=== PATIENT | male | born 1975 | race Two or more races ===

== ENCOUNTER 2017-09-29 17:32 | Emergency (ER) | payer MEDICAID ==
[~2017-09-29] VITALS: Ht 177.8 cm; Wt 79.4 kg
[2017-09-29 17:38] VITALS: BP 128/79
[2017-09-29] MEDS ORDERED: cefTRIAXone SOD 1,000 MG VL IM ONE (19:30)
[2017-09-29] MEDS ORDERED: BACITRACIN TOP OINT 1 UD PKG TOP ONE (19:45)
== END 2017-09-29 20:30 | disposition home or self-care (01) ==
LOC: ER 17:36
DX: T81.4XXA Infection following a procedure, initial encounter (principal); L02.414 Cutaneous abscess of left upper limb; F17.210 Nicotine dependence, cigarettes, uncomplicated
CPT/HCPCS: 96372; 99283; J0696

== ENCOUNTER 2019-04-02 17:53 | Emergency (ER) | payer MEDICAID ==
[~2019-04-02] VITALS: Ht 177.8 cm; Wt 70.3 kg
[2019-04-02 18:11] VITALS: BP 131/83
[2019-04-02 18:57] LABS: Urine Bacteria NONE SEEN /hpf (None Seen); Urine Blood Negative /uL (Negative); Urine Specific Gravity 1.004 (1.001-1.035); Urine WBC <1 /hpf (0 - 3)
[2019-04-02] MEDS ORDERED: LACTULOSE 20Gm/30ML SOLN PO ONE (19:15)
== END 2019-04-02 19:30 | disposition home or self-care (01) ==
LOC: ER 17:53
DX: M54.16 Radiculopathy, lumbar region (principal); F17.210 Nicotine dependence, cigarettes, uncomplicated
CPT/HCPCS: 72070; 72100; 81001

== ENCOUNTER 2019-07-01 21:38 | Emergency (ER) | payer SELFPAY ==
[~2019-07-01] VITALS: Ht 177.8 cm; Wt 74.8 kg
[2019-07-01 22:07] VITALS: BP 115/78
[2019-07-01 22:38] LABS: Urine Bacteria NONE SEEN /hpf (None Seen); Urine Blood Negative /uL (Negative); Urine Mucus FEW (None Seen); Urine Specific Gravity 1.024 (1.001-1.035); Urine WBC <1 /hpf (0 - 3)
[2019-07-01] MEDS ORDERED: PENICILLIN G BENZ 1200000 UNITS/2 ML SYRG IM ONE (23:30)
== END 2019-07-01 23:43 ==
LOC: ER 21:41
DX: A53.9 Syphilis, unspecified (principal); A51.39 Other secondary syphilis of skin
CPT/HCPCS: 81001; 96372; 99283; J0561

== ENCOUNTER 2019-08-07 01:32 | Emergency (ER) | payer MEDICAID ==
[~2019-08-07] VITALS: Ht 177.8 cm; Wt 74.8 kg
[2019-08-07 02:01] VITALS: BP 121/74
[2019-08-07] MEDS: TRIAMCINOLONE 40MG/ML 1ML VIAL IX ONE (02:45)
== END 2019-08-07 03:48 | disposition home or self-care (01) ==
LOC: ER 01:34
DX: J06.9 Acute upper respiratory infection, unspecified (principal); F17.210 Nicotine dependence, cigarettes, uncomplicated

== ENCOUNTER 2020-12-27 23:28 | Emergency (ER) | payer MEDICAID, OTHER ==
[~2020-12-27] VITALS: Ht 177.8 cm; Wt 81.6 kg
[2020-12-27 23:29] VITALS: BP 128/98
== END 2020-12-28 01:32 | disposition home or self-care (01) ==
LOC: ER 23:30
DX: S60.511A Abrasion of right hand, initial encounter (principal); R07.89 Other chest pain; Y08.89XA Assault by other specified means, initial encounter; Y93.89 Activity, other specified; Y92.89 Other specified places as the place of occurrence of the external cause; Y99.8 Other external cause status
CPT/HCPCS: 70450; 72125; 73100; 73130

== ENCOUNTER 2021-01-03 14:36 | Emergency (ER) | payer OTHER ==
[~2021-01-03] VITALS: Ht 177.8 cm; Wt 81.6 kg
[2021-01-03 15:24] VITALS: BP 133/79
== END 2021-01-03 17:05 | disposition home or self-care (01) ==
LOC: ER 14:36
DX: L02.413 Cutaneous abscess of right upper limb (principal); B86 Scabies; F17.210 Nicotine dependence, cigarettes, uncomplicated